=== PATIENT | female | born 1945 ===

== ENCOUNTER 2017-02-18 11:23 | Emergency (ER) | payer MEDICARE ==
[2017-02-18 11:53] VITALS: TEMP 98.2
--- NOTE | 2017-02-18 12:16 | C.PDOC ---
History Of Present Illness 71 yr old female presents to the ER with complaints of red and itchy left eye for the past 4 days. Patient also reports of swelling to the upper left eyelid. Patient denies fever, vision changes, discharge from the eye, headache, neck pain, weakness or numbness. Time Seen by Provider: 02/18/17 11:50 Chief Complaint (Nursing): Eye Problem History/Exam Limitations: no limitations Onset/Duration Of Symptoms: Days (4) Injury To Eye?: No Past Medical History Reviewed: Historical Data, Nursing Documentation, Vital Signs Vital Signs: Last Vital Signs Temp 98.2 F 02/18/17 11:42 Pulse 74 02/18/17 11:42 Resp 18 02/18/17 11:42 BP 131/89 02/18/17 11:42 Pulse Ox 96 02/18/17 12:22 - Medical History PMH: Arthritis Family History: States: No Known Family Hx - Social History Hx Alcohol Use: No Hx Substance Use: No - Immunization History Hx Tetanus Toxoid Vaccination: No Hx Influenza Vaccination: No Hx Pneumococcal Vaccination: No Review Of Systems Except As Marked, All Systems Reviewed And Found Negative. Constitutional: Negative for: Fever Eyes: Positive for: Other (Itchiness and redness to the left eye. Swelling to the left upper eyelid. ). Negative for: Vision Change Musculoskeletal: Negative for: Neck Pain Neurological: Negative for: Weakness, Numbness, Headache Physical Exam - Physical Exam Appears: Well, Non-toxic, No Acute Distress Skin: Warm, Dry, No Rash Head: Atraumatic, Normacephalic Eye(s): bilateral: PERRL, EOMI, left: Other (Upper lid with a small stye seen to the medial aspect. ) Oral Mucosa: Moist Lips: Normal Appearing, No Swelling Throat: Normal, No Erythema, No Exudate Chest: Symmetrical, No Tenderness Cardiovascular: Rhythm Regular, No Murmur Extremity: Normal ROM, No Swelling Neurological/Psych: Oriented x3, Normal Speech, Normal Motor ED Course And Treatment O2 Sat by Pulse Oximetry: 96 Medical Decision Making Medical Decision Making: NOTE: * Vision Acuity - Left 20/40. Right 20/30 Disposition - Disposition Referrals: Silver Begum MD [Staff Provider] - Disposition: HOME/ ROUTINE Disposition Time: 12:14 Condition: GOOD Additional Instructions: Apply warm compresses to left eyelid several times a day. Follow up with Dr Lin or Dr Begum (signal timer) in a few days. Return to ER for any worsening symptoms. Instructions: Dennis (ED) Forms: General Discharge Instructions - Clinical Impression Clinical Impression: Dennis - PA / MEDICAL OFFICE SUPERVISOR / Resident Statement MD/DO has reviewed & agrees with the documentation as recorded. - Scribe Statement The provider has reviewed the documentation as recorded by the Scribe Sole Stevenson All medical record entries made by the Scribe were at my direction and personally dictated by me. I have reviewed the chart and agree that the record accurately reflects my personal performance of the history, physical exam, medical decision making, and the department course for this patient. I have also personally directed, reviewed, and agree with the discharge instructions and disposition.
[2017-02-18 12:49] VITALS: BP 128/76; PULSE 78; RESP 20
[2017-02-18 23:12] VITALS: O2SAT 96
== END 2017-02-18 12:30 | disposition home or self-care (01) ==
LOC: C.ER 11:23
DX: H00.014 Hordeolum externum left upper eyelid (principal)